=== PATIENT | male | born 1955 | race African-American/Black ===

== ENCOUNTER 2016-06-01 17:01 | Emergency (ER) | payer MEDICAID, OTHER ==
[~2016-06-01] VITALS: Ht 185.4 cm; Wt 105.8 kg
[~2016-06-01 17:01] MED LIST: ASPI-COR81 M1 PO; ASPIRIN 81 MG; ASPIRIN ADULT L81 M1 PO; CALAN SR240 M1 PO; CALCIUM CARBONATE 1500 MG; CIPRO500 MG PO; COMPAZINE; COMPAZINE10 M1 PO; COMPAZINE10 MG PO; COZAAR 50 MG; COZAAR50 MG PO; FLUNISOLIDE; GLUCOPHAGE850 MG PO; HCTZ PO; HYDROCHLOROT 25 MG; IMITREX 50 MG; IMITREX50 MG PO; INSULIN ISOPHANE SC; INSULIN NPH; INSULIN REGULAR; KLONOPIN0.5 M1 PO; LANTUS INS100 UNITS/ SUBQ; LOPRESSOR 50 MG; LOPRESSOR50 M1 PO; MAXALT 10 MG; MAXALT10 MG PO; MAXALT5 MG PO; MECLIZINE 25 MG; MECLIZINE25 M1 PO; METFORMIN 850 MG; NAPROXEN 500 MG; NAPROXEN500 M1 PO; NASAREL0.025 MG/1 NS; NEURONTIN 600MG; NEURONTIN600 MG PO; NORTRIPTYLINE 50 MG; NORTRIPTYLINE PO; SEROQUEL 50 MG; SEROQUEL50 MG PO; SILDENAFIL 100 MG; SUMATRIPTAN SUC50 MG PO; TOPAMAX100 MG PO; TOPAMAX50 MG PO; TOPIRAMATE 100 MG; TUMS EX PO; VIAGRA100 MG PO; VICODIN 5/500 M1 TAB PO; ZETIA 10 MG; ZETIA10 MG PO; ZOCOR 80 MG; ZOCOR80 MG PO; [UNRECOGNIZED DRUG - OTHER] SC
[2016-06-01 17:14] VITALS: BP 119/66
--- NOTE | 2016-06-01 20:44 | NUR ---
TO ER BED 8
--- NOTE | 2016-06-01 20:55 | NUR ---
PT IS 60/M BIB SELF TO ED C/O BL LEG SWELLING X JANUARY W/ SOB X 6 DAYS; PT STATES SAW HEAD CD REACTOR OPERATOR THIS AFTERNOON AND REFERRED TO ER. DENIES N/V/D; SKIN IS WARM/DRY WITH BLE SWELLING NOTED; AAOX4 WITH EVEN AND STEADY GAIT; LUNGS CLEAR BL; HR EVEN AND REGULAR; PT DENIES ANY FEVER, CP, SOB, OR COUGH AT THIS TIME; PATIENT STATES PAIN OF 7/10 AT THIS TIME WHEN STANDING BUT LESSER PAIN WHEN LAYING; VSS; PATIENT POSITIONED FOR COMFORT; HOB ELEVATED; BEDRAILS UP X2; BED DOWN. ER MD MADE AWARE OF PT STATUS.
[2016-06-01] MEDS ORDERED: MORPHINE SULFATE 4 MG/ML SYR IVP ONE (21:00)
[2016-06-01] MEDS ORDERED: ACETAMINOPHEN/CODEINE 300/30MG 1 TAB PO ONE (21:50)
[2016-06-01 22:29] VITALS: BP 134/77
--- NOTE | 2016-06-01 22:29 | NUR ---
Patient discharged with v/s stable. Written and verbal after care instructions given and explained. Patient alert, oriented and verbalized understanding of instructions. Ambulatory with steady gait. All questions addressed prior to discharge. ID band removed. Patient advised to follow up with PMD. Rx of TYLENOL WITH CODEINE given. Patient educated on indication of medication including possible reaction and side effects. Opportunity to ask questions provided and answered.
== END 2016-06-01 22:30 | disposition home or self-care (01) ==
LOC: MED 17:01
DX: N18.9 Chronic kidney disease, unspecified (principal); E11.22 Type 2 diabetes mellitus with diabetic chronic kidney disease; I12.9 Hypertensive chronic kidney disease with stage 1 through stage 4 chronic kidney disease, or unspecified chronic kidney disease; R06.02 Shortness of breath; Z79.82 Long term (current) use of aspirin; Z79.4 Long term (current) use of insulin
CPT/HCPCS: 36415; 71010; 80053; 82550; 82553; 83690; 83880; 84484; 85025; 93005; 93970; 99285; J2270; Q0092

== ENCOUNTER 2017-11-27 05:39 | Emergency (ER) | payer OTHER ==
[~2017-11-27] VITALS: Ht 188 cm; Wt 99.8 kg
[~2017-11-27 05:39] MED LIST changes: -ASPI-COR81 M1 PO; +ASPI81CT95 PO; -ASPIRIN 81 MG; -ASPIRIN ADULT L81 M1 PO; -CALAN SR240 M1 PO; -CALCIUM CARBONATE 1500 MG; +CIPR500T4 PO; -CIPRO500 MG PO; +CLON0.5T1 PO; -COMPAZINE; -COMPAZINE10 M1 PO; -COMPAZINE10 MG PO; +COZ50 PO; -COZAAR 50 MG; -COZAAR50 MG PO; -FLUNISOLIDE; +GABA600T1 PO; -GLUCOPHAGE850 MG PO; -HCTZ PO; -HYDROCHLOROT 25 MG; -IMITREX 50 MG; -IMITREX50 MG PO; -INSULIN ISOPHANE SC; -INSULIN NPH; -INSULIN REGULAR; -KLONOPIN0.5 M1 PO; -LANTUS INS100 UNITS/ SUBQ; +LANTUS SUBQ; -LOPRESSOR 50 MG; -LOPRESSOR50 M1 PO; -MAXALT 10 MG; -MAXALT10 MG PO; -MAXALT5 MG PO; +MECL-370 PO; -MECLIZINE 25 MG; -MECLIZINE25 M1 PO; -METFORMIN 850 MG; -NAPROXEN 500 MG; -NAPROXEN500 M1 PO; -NASAREL0.025 MG/1 NS; -NEURONTIN 600MG; -NEURONTIN600 MG PO; +NORT50CA PO; -NORTRIPTYLINE 50 MG; -NORTRIPTYLINE PO; +ORE25 PO; +PROC10TA41 PO; +QUET50TA PO; -SEROQUEL 50 MG; -SEROQUEL50 MG PO; -SILDENAFIL 100 MG; +SIMV80TA1 PO; +SUMA50TA17 PO; -SUMATRIPTAN SUC50 MG PO; +TOP100 PO; -TOPAMAX100 MG PO; -TOPAMAX50 MG PO; -TOPIRAMATE 100 MG; -TUMS EX PO; -VIAGRA100 MG PO; -VICODIN 5/500 M1 TAB PO; -ZETIA 10 MG; -ZETIA10 MG PO; -ZOCOR 80 MG; -ZOCOR80 MG PO; -[UNRECOGNIZED DRUG - OTHER] SC
--- NOTE | 2017-11-27 05:47 | NUR ---
Patient transferred to bed 4 via wheelchair by tech. RN evaluating patient at bedside.
[2017-11-27 05:50] VITALS: BP 130/83
--- NOTE | 2017-11-27 06:00 | NUR ---
PT IS A 62 Y/O MALE WHO PRESENTS TO THE ED C/O GENERALIZED WEAKNESS. PT STATES THAT HE IS GETTING WORSE WITH PROSTATE CA. PT DENIES PAIN AT THIS TIME. REPORTS DECREASED APPETITE AND COMPLICATIONS WITH PROSTATE CA. PT DENIES CP, SOB, REPORTS N/V DENIES DIARRHEA. PT AWAKE AND ALERT, RR EVEN/UNLABORED. PT REPOSITIONED FOR COMFORT, BED IN LOWEST POSITION. ER MD DR. ALEXIS NOTIFIED. WILL CONTINUE TO MONITOR. HX, PROSTATE CA, DM, MIGRAINE
[2017-11-27] MEDS ORDERED: NACL 0.9% 1,000 ML IV ONE (06:35)
--- NOTE | 2017-11-27 06:51 | NUR ---
PT REFUSED EKG AT THIS TIME. PT IS REQUESTING MEDICATION. ER MD AND RN MADE AWARE.
--- NOTE | 2017-11-27 07:00 | NUR ---
certified emergency vehicle technician at bedside.
--- NOTE | 2017-11-27 07:10 | NUR ---
Pt report given to BEATA SCRUGGS. Transfer of care at this time.
--- NOTE | 2017-11-27 07:15 | NUR ---
PT IS RESTING IN BED, AGITATED, VSS, C/O GENERALIZED PAIN 10/10, REQUESTED FOR NORCO AND FOOD. DENIES CHEST PAIN, NO S/S OF DISTRESS, GENERALIZED WEAKNESS NOTED.
[2017-11-27 07:17] LABS: BASOPHILS # (AUTO) 0.1 K/uL (0.00-0.22); BASOPHILS % (AUTO) 0.7 % (0.0-2.0); EOSINOPHILS # (AUTO) 0.4 K/uL (0-0.4); HEMATOCRIT 33.1 % (36-52); HEMOGLOBIN 10.9 g/dL (12.0-18.0); LYMPHOCYTES % (AUTO) 22.1 % (20.5-51.1); MEAN CORPUSCULAR HEMOGLOBIN 30 pg (27-31); MEAN CORPUSCULAR HGB CONC 33 g/dL (33-37); MEAN CORPUSCULAR VOLUME 91.9 fL (80-94); MONOCYTES # (AUTO) 0.7 K/uL (0.8-1.0); MONOCYTES % (AUTO) 7.3 % (1.7-9.3); NEUTROPHILS # (AUTO) 5.9 K/uL (1.8-7.7); NEUTROPHILS % (AUTO) 65.9 % (42.2-75.2); PLATELET COUNT (AUTO) 291 K/uL (140-450); WHITE BLOOD COUNT (AUTO) 8.9 K/uL (4.8-10.8)
[2017-11-27 07:31] LABS: ANION GAP 13.2 (8-16); CARBON DIOXIDE 23.7 mmol/L (21-32); CREATININE 1.8 mg/dL (0.7-1.3); POTASSIUM 3.9 mmol/L (3.5-5.1)
[2017-11-27 07:32] LABS: PROTHROMBIN TIME 9.9 secs (10.8-13.4)
[2017-11-27 07:38] LABS: ALBUMIN 3.9 g/dL (3.4-5.0); TOTAL BILIRUBIN 0.2 mg/dL (0.0-1.0)
--- NOTE | 2017-11-27 07:53 | NUR ---
TALKED TO KEMAR PICCLINE LINE NURSE AWARE OF ORDER, SHEET METAL CONTRACTOR BREN- CHARGE NURSE MARIAM GAY
[2017-11-27] MEDS ORDERED: CALER120 PO (08:21)
[2017-11-27] MEDS ORDERED: METF850T4 PO (08:21)
[2017-11-27] MEDS ORDERED: PAR2.5 PO (08:21)
[2017-11-27] MEDS ORDERED: HYDR1TAB PO (08:21)
[2017-11-27 08:27] LABS: APPEARANCE,URINE CLEAR (CLEAR); BILIRUBIN,URINE NEGATIVE (NEGATIVE); BLOOD, URINE NEGATIVE (NEGATIVE); COLOR,URINE YELLOW (YELLOW); LEUKOCYTE ESTERASE ,URINE NEGATIVE (NEGATIVE); NITRITE, URINE NEGATIVE (NEGATIVE); UGLUCOSE NEGATIVE (NEGATIVE)
--- NOTE | 2017-11-27 08:52 | NUR ---
Patient discharged with v/s stable. Written and verbal after care instructions given and explained. Patient alert, oriented and verbalized understanding of instructions. Wheel Chair Assisted. All questions addressed prior to discharge. ID band removed. Patient advised to follow up with PMD. Rx of ANTIVERT given. Patient educated on indication of medication including possible reaction and side effects. Opportunity to ask questions provided and answered.
[2017-11-27 09:52] VITALS: BP 129/70
== END 2017-11-27 08:52 | disposition home or self-care (01) ==
LOC: MED 05:39
DX: C61 Malignant neoplasm of prostate (principal); R06.00 Dyspnea, unspecified; G43.909 Migraine, unspecified, not intractable, without status migrainosus; E11.9 Type 2 diabetes mellitus without complications; I10 Essential (primary) hypertension; Z79.899 Other long term (current) drug therapy
CPT/HCPCS: 36415; 71045; 80053; 81003; 82948; 83605; 83880; 84484; 85025; 85610; 85730; 87040; 87086; 93005; 96360; 99285; J7030; Q0092; C1751

== ENCOUNTER 2018-03-06 15:26 | Emergency (ER) | payer OTHER ==
[~2018-03-06] VITALS: Ht 175.3 cm; Wt 90.7 kg
[~2018-03-06 15:26] MED LIST changes: +CALER120 PO; -CIPR500T4 PO; +HYDR1TAB PO; +METF-350 PO; +PAR2.5 PO; -SIMV80TA1 PO
[2018-03-06 15:32] VITALS: BP 122/75
--- NOTE | 2018-03-06 15:43 | NUR ---
62 YO M BIB SELF W/ C/O URINARY RETENTION X 1 DAY BECAUSE HE HAS RUN OUT OF FLOWMAX. STATES ONCOLOGIST DOUBLED HIS FLOMAX DOSE AND PMD FORGOT TO GIVE HIM THE REFILL. PT STATES HE HAS BEEN UNABLE TO URINATE SINCE LAST NIGHT. BLADDER DISTENTION. BEEN W/O FLOMAX SINCE WEDNESDAY. DENIES N/V/D/FEVER. HX PROSTATE CANCER RX FLOMAX
[2018-03-06] MEDS ORDERED: LIDOCAINE JELLY 2% 30 ML TUBE TP ONE (16:30)
[2018-03-06] MEDS ORDERED: TAMSULOSIN 0.4 MG CAP ONE (17:26)
--- NOTE | 2018-03-06 17:30 | NUR ---
URINE 300CC, YELLOW.
[2018-03-06] MEDS ORDERED: ACETAMINOPHEN 325 MG TAB PO ONE (17:55)
[2018-03-06] MEDS ORDERED: IBUPROFEN 600 MG TAB PO ONE (17:55)
[2018-03-06] MEDS ORDERED: ACETAMINOPHEN 325 MG TAB ONE (18:05)
[2018-03-06] MEDS ORDERED: IBUPROFEN 600 MG TAB ONE (18:06)
--- NOTE | 2018-03-06 19:10 | NUR ---
URINE LEG BAG PLACED TO LEFT LEG.
--- NOTE | 2018-03-06 19:18 | NUR ---
REPORT GIVEN TO DAR SCRUGGS.
[2018-03-06 19:20] VITALS: BP 134/66
--- NOTE | 2018-03-06 19:20 | NUR ---
Patient discharged with v/s stable. Written and verbal after care instructions given and explained. Patient alert, oriented and verbalized understanding of instructions. Ambulatory with steady gait. All questions addressed prior to discharge. ID band removed. Patient advised to follow up with PMD. Rx of FLOMAX given. Patient educated on indication of medication including possible reaction and side effects. Opportunity to ask questions provided and answered.
[2018-03-07] MEDS ORDERED: TAMSULOSIN 0.4 MG CAP PO SCH (08:30)
== END 2018-03-06 19:20 | disposition home or self-care (01) ==
LOC: MED 15:26
DX: R33.9 Retention of urine, unspecified (principal); E11.9 Type 2 diabetes mellitus without complications; I10 Essential (primary) hypertension; Z85.46 Personal history of malignant neoplasm of prostate; Z79.899 Other long term (current) drug therapy; Z79.4 Long term (current) use of insulin; Z79.82 Long term (current) use of aspirin
CPT/HCPCS: 51702; 99284

== ENCOUNTER 2018-03-07 06:25 | Emergency (ER) | payer OTHER ==
[~2018-03-07] VITALS: Ht 188 cm; Wt 98.9 kg
[2018-03-07 06:31] VITALS: BP 123/82
[2018-03-07] MEDS ORDERED: NACL 0.9% 1,000 ML IV SCH (06:45)
[2018-03-07 07:18] LABS: BASOPHILS % (AUTO) 0.8 % (0.0-2.0); EOSINOPHILS # (AUTO) 0.2 K/uL (0-0.4); EOSINOPHILS % (AUTO) 4.7 % (0.0-4.0); HEMATOCRIT 33.2 % (36-52); HEMOGLOBIN 10.9 g/dL (12.0-18.0); MEAN CORPUSCULAR HEMOGLOBIN 30 pg (27-31); MEAN CORPUSCULAR HGB CONC 33 g/dL (33-37); MEAN CORPUSCULAR VOLUME 92.2 fL (80-94); MONOCYTES # (AUTO) 0.4 K/uL (0.8-1.0); MONOCYTES % (AUTO) 7.3 % (1.7-9.3); NEUTROPHILS # (AUTO) 3.4 K/uL (1.8-7.7); NEUTROPHILS % (AUTO) 67.2 % (42.2-75.2); PLATELET COUNT (AUTO) 217 K/uL (140-450); RED CELL DISTRIBUTION WIDTH 14.1 % (11.6-13.7)
[2018-03-07 07:43] LABS: ANION GAP 14.3 (8-16); CARBON DIOXIDE 24.3 mmol/L (21-32); CREATININE 1.5 mg/dL (0.7-1.3); POTASSIUM 3.6 mmol/L (3.5-5.1)
[2018-03-07 07:48] LABS: ALBUMIN 3.9 g/dL (3.4-5.0); TOTAL BILIRUBIN 0.2 mg/dL (0.0-1.0)
[2018-03-07 08:27] LABS: BILIRUBIN,URINE NEGATIVE (NEGATIVE); BLOOD, URINE 3+ (NEGATIVE); COLOR,URINE YELLOW (YELLOW); LEUKOCYTE ESTERASE ,URINE TRACE (NEGATIVE); NITRITE, URINE NEGATIVE (NEGATIVE); PH,URINE 7.5 (5.0-9.0); UGLUCOSE NEGATIVE (NEGATIVE)
[2018-03-07 08:28] LABS: APPEARANCE,URINE HAZY (CLEAR); RBC,URINE >100 /HPF (0-5)
[2018-03-07 08:29] LABS: WBC,URINE 6-15 (FEW) /HPF (0-5)
[2018-03-07 09:45] VITALS: BP 132/63
== END 2018-03-07 09:45 | disposition home or self-care (01) ==
LOC: MED 06:25
DX: C61 Malignant neoplasm of prostate (principal); N39.0 Urinary tract infection, site not specified; E11.9 Type 2 diabetes mellitus without complications; I10 Essential (primary) hypertension; Z85.46 Personal history of malignant neoplasm of prostate; Z79.82 Long term (current) use of aspirin; Z79.4 Long term (current) use of insulin; Z79.899 Other long term (current) drug therapy
CPT/HCPCS: 36415; 80053; 81001; 83605; 85025; 87040; 87086; 99283; J7030; 96372

== ENCOUNTER 2018-05-29 16:33 | Inpatient (IN) | payer OTHER ==
[~2018-05-29] VITALS: Ht 185.4 cm; Wt 95.3 kg
--- NOTE | 2018-05-29 16:34 | NUR ---
WHEEL ASSIST PROVIDED FOR PT IN ER PAUL---PT STATED HE NEEDED A MINUTE LEFT WHEEL CHAIR NEXT TO PT---INFORMED PT SOON HE WAS READY HE WOULD COME STRAIGHT BACK
[2018-05-29 16:40] VITALS: BP 101/46
--- NOTE | 2018-05-29 17:00 | NUR ---
C/O DIZZYNESS X2 DAYS. PT REPORTS FALLING WEDNESDAY, DENIES HITTING HEAD, HURTING ANY BODY PART. STATES I HAVE HAD DIZZYNESS ALL DAY LONG AND I HAVE FAINTED ALL DAY LONG" . LEFT LEG SWELLING X 1 YEAR. MEDHX:"NEUROLOGICAL PROBLEMS", DM, HTN, VERTIGO. PATIENT STATES PAIN OF 0/10 AT THIS TIME. PATIENT POSITIONED FOR COMFORT; LEFT LEG ELEVATED; BEDRAILS UP X2; BED DOWN. ER MD MADE AWARE OF PT STATUS.
[2018-05-29] MEDS ORDERED: MEGE40TA4 PO (17:06)
[2018-05-29] MEDS ORDERED: TAMS0.4C96 PO (17:06)
[2018-05-29] MEDS ORDERED: ATOR20TA PO (17:07)
--- NOTE | 2018-05-29 18:01 | NUR ---
X RAY AT BEDSIDE
--- NOTE | 2018-05-29 18:12 | NUR ---
LAB AT BEDSIDE
[2018-05-29 18:34] LABS: BASOPHILS % (AUTO) 0.5 % (0.0-2.0); MONOCYTES # (AUTO) 0.5 K/uL (0.8-1.0); RED CELL DISTRIBUTION WIDTH 14.9 % (11.6-13.7)
[2018-05-29 18:38] LABS: EOSINOPHILS % (AUTO) 0.4 % (0.0-4.0); HEMATOCRIT 30.6 % (36-52); HEMOGLOBIN 10.2 g/dL (12.0-18.0); LYMPHOCYTES # (AUTO) 0.8 K/uL (2.0-11.5); LYMPHOCYTES % (AUTO) 10.4 % (20.5-51.1); MEAN CORPUSCULAR HEMOGLOBIN 31 pg (27-31); MEAN CORPUSCULAR HGB CONC 33 g/dL (33-37); MEAN CORPUSCULAR VOLUME 91.9 fL (80-94); MONOCYTES % (AUTO) 5.9 % (1.7-9.3); NEUTROPHILS # (AUTO) 6.6 K/uL (1.8-7.7); NEUTROPHILS % (AUTO) 82.8 % (42.2-75.2); PLATELET COUNT (AUTO) 221 K/uL (140-450); RED BLOOD CELL COUNT(AUTO) 3.33 MIL/uL (4.20-6.10)
--- NOTE | 2018-05-29 18:58 | NUR ---
Patient being evaluated by DR ALEXIS at bedside.
[2018-05-29 19:04] LABS: ANION GAP 17.9 (8-16); CARBON DIOXIDE 22.6 mmol/L (21-32); CREATININE 3.2 mg/dL (0.7-1.3); POTASSIUM 4.5 mmol/L (3.5-5.1)
[2018-05-29 19:09] LABS: APPEARANCE,URINE CLEAR (CLEAR); BILIRUBIN,URINE NEGATIVE (NEGATIVE); BLOOD, URINE NEGATIVE (NEGATIVE); COLOR,URINE YELLOW (YELLOW); LEUKOCYTE ESTERASE ,URINE NEGATIVE (NEGATIVE); NITRITE, URINE NEGATIVE (NEGATIVE); UGLUCOSE NEGATIVE (NEGATIVE)
--- NOTE | 2018-05-29 19:16 | NUR ---
Pt report given to SUZIE SCRUGGS. Transfer of care at this time.
[2018-05-29] MEDS ORDERED: ASPIRIN 81 MG TAB.CHEW PO ONE (19:30)
--- NOTE | 2018-05-29 19:30 | NUR ---
RECEIVED REPORT FROM AM NURSE. PT LAYING IN BED, REPORTS INTERMITTENT DIZZINESS, REPORTS BEING UNABLE TO AMBULATE DUE TO DIZZINESS. DENIES CP, SOB, N/V. TUNA SANDWICH AND CHICKEN SANDWICH PROVIDED. VSS, ALL NEEDS MET.
[2018-05-29] MEDS ORDERED: NACL 0.9% 1,000 ML IV ONE (19:55)
[2018-05-29 19:56] LABS: PROTHROMBIN TIME 10.6 secs (10.8-13.4)
[2018-05-29] MEDS ORDERED: ENOXAPARIN 100 MG/ML SYR SUBQ ONE (20:05)
--- NOTE | 2018-05-29 21:30 | NUR ---
PT TAKEN TO CT
--- NOTE | 2018-05-29 21:39 | NUR ---
PT RETURN FROM CT
--- NOTE | 2018-05-29 21:40 | NUR ---
PT LAYING IN BED, RR EVEN AND UNLABORED. VSS. DENIES YOO, CP, N/V. REPORTS INTERMITTENT DIZZINESS, ER MD MADE AWARE.
--- NOTE | 2018-05-29 22:17 | NUR ---
DR CURRAN CALLED ON THE UNIT THAT HE IS GETTING AN ADMIT WILL GIVE ORDERS. RECEIVED ODERS AND STATED THAT THE LABS ARE FOR THE AM, MENTIONED IT TO HIM THAT WE USUALLY DO TROPONIN Q8H BUT HE SAID NO THIS ARE AM LABS.
--- NOTE | 2018-05-29 22:32 | NUR ---
Michelle uriostegui in ED - 05/29/18 at 2250 by [email or web address] RN AND EMT TRANSFERING PT TO THE FLOOR, V[facility].
--- NOTE | 2018-05-29 22:40 | NUR ---
Patient will be admitted to care of DR. MEREDITH. Admited to TELE. Will go to [id number]. Belongings list completed. Report to KAEL NEAL.
--- NOTE | 2018-05-29 22:50 | NUR ---
PT ARRIVED AT UNIT VIA GURNEY, PT ABLE TO TRANSFER SELF TO BED, TOLERATED WELL, RECEIVED BEDSIDE REPORT FROM ER NURSE SUZIE RN, PT STABLE, NO DISTRESS NOTED, IV TO L AC 20G PATENT, INTACT, DATED AND INITIALED, PT ON ROOM AIR, NO SOB NOTED, ORIENT PT TO ROOM ,BED AND CALL LIGHT, V/S TAKEN WNL, MRSA SWAB TAKEN, INITIAL ASSESSMENT DONE, ALL SAFETY PRECAUTION MET, CALL LIGHT WITHIN REACH, WILL CONTINUE TO MONITOR.
[2018-05-29 23:00] VITALS: BP 109/71
[2018-05-29] MEDS ORDERED: QUEtiapine FUMARATE 25 MG TAB PO PRN (23:20)
[2018-05-29] MEDS ORDERED: DEXTROSE 50% 50 ML SYR IVP PRN (23:20)
[2018-05-29] MEDS ORDERED: MECLIZINE HCL PO SCH (23:20)
[2018-05-29] MEDS ORDERED: ACETAMINOPHEN 325 MG TAB PO PRN (23:20)
[2018-05-29] MEDS ORDERED: PROCHLORPERAZINE MALEATE PO SCH (23:20)
[2018-05-29] MEDS ORDERED: SUMAtriptan 50 MG TAB PO PRN (23:20)
[2018-05-29] MEDS ORDERED: GABAPENTIN PO SCH (23:20)
[2018-05-29] MEDS ORDERED: NORTRIPTYLINE 25 MG CAP PO SCH (23:45)
--- NOTE | 2018-05-29 23:48 | NUR ---
TALKED TO DR. CURRAN REGARDING PT REQUESTING MEDICATION NORTRIPTYLINE (HOME MEDICATION) FOR TONIGHT, STATED OK TO ORDER ONCE FOR NOW. WILL PUT IN ORDER AND CONTINUE WITH ORDERS.
[2018-05-30] MEDS ORDERED: MECLIZINE 25 MG TAB PO PRN ×2 (00:30→13:45)
--- NOTE | 2018-05-30 01:08 | NUR ---
PT STATED FEELING REALLY DIZZY, MEDICATION PER DR ORDER GIVEN, PT TOLERATED WELL, NO DISTRESS NOTED, CALL LIGHT WITHIN REACH, WILL CONTINUE TO MONITOR.
--- NOTE | 2018-05-30 03:49 | NUR ---
VITAL SIGN TAKEN. WITHIN PT'S BASELINE. NO SOB OR ANY DISCOMFORT NOTED. CALL LIGHT WITHIN REACH AND ENCOURAGE TO USE. WILL CONTINUE TO MONITOR.
[2018-05-30 04:00] VITALS: BP 110/59
[2018-05-30] MEDS: BLOOD GLUCOSE MONITORING 1 DEV DEV FS SCH ×4 (05:39→21:55)
--- NOTE | 2018-05-30 05:41 | NUR ---
CHECKED ON PT, PT SLEEPING, NO DISTRESS NOTED, CALL LIGHT WITHIN REACH, WILL CONTINUE TO MONITOR.
[2018-05-30 06:40] LABS: BASOPHILS % (AUTO) 0.5 % (0.0-2.0); EOSINOPHILS # (AUTO) 0.2 K/uL (0-0.4); HEMATOCRIT 27.9 % (36-52); HEMOGLOBIN 9.3 g/dL (12.0-18.0); LYMPHOCYTES # (AUTO) 1.2 K/uL (2.0-11.5); LYMPHOCYTES % (AUTO) 16.2 % (20.5-51.1); MEAN CORPUSCULAR HEMOGLOBIN 31 pg (27-31); MEAN CORPUSCULAR HGB CONC 34 g/dL (33-37); MEAN CORPUSCULAR VOLUME 91.3 fL (80-94); MONOCYTES # (AUTO) 0.4 K/uL (0.8-1.0); MONOCYTES % (AUTO) 5.5 % (1.7-9.3); NEUTROPHILS # (AUTO) 5.5 K/uL (1.8-7.7); NEUTROPHILS % (AUTO) 74.8 % (42.2-75.2); PLATELET COUNT (AUTO) 203 K/uL (140-450); RED BLOOD CELL COUNT(AUTO) 3.05 MIL/uL (4.20-6.10); RED CELL DISTRIBUTION WIDTH 14.6 % (11.6-13.7); WHITE BLOOD COUNT (AUTO) 7.3 K/uL (4.8-10.8)
[2018-05-30 06:47] LABS: ANION GAP 15.6 (8-16); CARBON DIOXIDE 21.1 mmol/L (21-32); CREATININE 2.2 mg/dL (0.7-1.3); POTASSIUM 3.7 mmol/L (3.5-5.1)
[2018-05-30] MEDS: INSULIN LISPRO SLIDING SCALE 100 UNITS/ML VIAL SUBQ PRN ×4 (06:55→21:54)
--- NOTE | 2018-05-30 07:10 | NUR ---
RECEIVED REPORT FROM NIGHT NURSE ÁNGEL. PT AWAKE A/O ABLE TO COMMUNICATE NEEDS, PER PT DIZZINESS CONTINUES, UNCHANGED. IV SITE NOTED TO BE INFILTRATED WITH SLIGHT SWELLING AT SITE, PT DENIES PAIN, DIRECTOR OF MARKETING AND PROMOTIONS TO REMOVE AND RESTART. CALL LIGHT AND PERSONAL ITEMS WITHIN REACH, NO S/S OF ACUTE DISTRESS NOTED AT THIS TIME, WILL CONTINUE TO MONITOR.
[2018-05-30] MEDS ORDERED: ACETAMINOPHEN EXTRA STRENGTH 500 MG TAB PO PRN ×2 (07:14→13:35)
[2018-05-30] MEDS ORDERED: PROCHLORPERAZINE 5 MG TAB PO PRN (07:25)
--- NOTE | 2018-05-30 07:28 | NUR ---
ENDORSED PATIENT AT BEDSIDE TO DAY SHIFT NURSE FOR CONTINUITY OF CARE. PATIENT IS IN STABLE CONDITION. SAFETY MEASURES ARE IN PLACE.
--- NOTE | 2018-05-30 07:58 | NUR ---
RECEIVED LAB REPORT TROPONIN 0.179 FROM [facility] IN LAB, TRENDING DOWN.
[2018-05-30 08:00] VITALS: BP 104/67
--- NOTE | 2018-05-30 08:22 | NUR ---
PATIENT HAS BEEN SCREENED AND CATEGORIZED HIGH NUTRITION RISK. PATIENT WILL BE SEEN WITHIN 1-2 DAYS OF ADMISSION. 05/30/18-05/31/[address]
[2018-05-30] MEDS ORDERED: TOPIRAMATE 100 MG TAB PO SCH (09:00)
[2018-05-30] MEDS: VERAPAMIL 120 MG CAPER PO SCH ×2 (09:00→09:26)
[2018-05-30] MEDS ORDERED: NORTRIPTYLINE HYDROCHLORIDE PO SCH ×2 (09:00→21:00)
[2018-05-30] MEDS ORDERED: metFORMIN 850 MG TAB PO SCH (09:00)
[2018-05-30] MEDS ORDERED: NON-FORMULARY ITEM (Aspirin 1 TAB) PO SCH (09:00)
[2018-05-30] MEDS ORDERED: METOPROLOL PO SCH (09:00)
[2018-05-30] MEDS ORDERED: HYDROCHLOROTHIAZIDE PO SCH (09:00)
[2018-05-30] MEDS ORDERED: MEGESTROL ACETATE 80 MG PO SCH (09:00)
[2018-05-30] MEDS: ASPIRIN 81 MG TAB.CHEW PO SCH (09:16)
[2018-05-30] MEDS: LOSARTAN 50 MG TAB PO SCH (09:18)
[2018-05-30] MEDS: clonazePAM 0.5 MG TAB PO SCH ×2 (09:19→21:51)
[2018-05-30] MEDS: TAMSULOSIN 0.4 MG CAP PO SCH (09:19)
[2018-05-30] MEDS: ATORVASTATIN 20 MG TAB PO SCH (09:20)
[2018-05-30] MEDS: MEGESTROL 40 MG TAB PO SCH (09:20)
[2018-05-30] MEDS: NORTRIPTYLINE 25 MG CAP PO SCH (09:21)
[2018-05-30] MEDS: HYDROCHLOROTHIAZIDE 25 MG TAB PO SCH (09:21)
[2018-05-30] MEDS: BROMOCRIPTINE 2.5 MG TAB PO SCH (09:22)
--- NOTE | 2018-05-30 09:30 | NUR ---
PT AWAKE A/O ABLE TO COMMUNICATE NEEDS, NO S/S OF ACUTE DISTRESS NOTED AT THIS TIME, CALL LIGHT AND PERSONAL ITEMS WITHIN REACH, WILL CONTINUE TO MONITOR.
--- NOTE | 2018-05-30 09:50 | NUR ---
NOTIFIED PT VERAPAMIL PT AVAILABLE, REQUESTED PT HAVE FAMINLY OR FRIEND BRING MEDICATION FROM HOME.
--- NOTE | 2018-05-30 10:30 | NUR ---
NOTIFIED DR MEREDITH OF PHARMACY INQUIRY REGARDING ADDING METOPROLOL TO CURRENT INHOUSE MEDICATION TO SUBSTITUTE PT COMBO HOME MED, PHYSICIAN DECLINED.
[2018-05-30] MEDS: NACL 0.9% 1,000 ML IV SCH (11:20)
--- NOTE | 2018-05-30 11:30 | NUR ---
PT SLEEPING, NO S/S OF ACUTE DISTRESS NOTED AT THIS TIME, CALL LIGHT AND PERSONAL ITEMS WITHIN REACH, WILL CONTINUE TO MONITOR.
[2018-05-30 12:00] VITALS: BP 95/54
--- NOTE | 2018-05-30 12:30 | NUR ---
DR CURRAN AT BEDSIDE ROUNDING ON PT.
--- NOTE | 2018-05-30 15:20 | NUR ---
05/30/18 RD INITIAL ASSESSMENT COMPLETED PLEASE REFER TO NUTRITION ASSESSMENT UNDER CARE ACTIVITY FOR ESTIMATED NUTRITIONAL NEEDS. 1. CONTINUE RENAL CCHO DIET TOLERATED 2. PATIENT WAS PROVIDED DIABETES EDUCATION HANDOUTS 3. RD TO FOLLOW-UP 3-5 DAYS, MODERATE RISK LORIE VILLARREAL RD
[2018-05-30 16:00] VITALS: BP 98/52
--- NOTE | 2018-05-30 16:00 | NUR ---
PT AWAKE A/O ABLE TO COMMUNICATE NEEDS, POST VOID BLADDER SCAN COMPLETED PER DR BINA Menjivar 87ML, NO S/S OF ACUTE DISTRESS NOTED AT THIS TIME, CALL LIGHT AND PERSONAL ITEMS WITHIN REACH, WILL CONTINUE TO MONITOR.
--- NOTE | 2018-05-30 19:29 | NUR ---
PT AWAKE A/O ABLE TO COMMUNICATE NEEDS, NO S/S OF ACUTE DISTRESS NOTED AT THIS TIME, CALL LIGHT AND PERSONAL ITEMS WITHIN REACH, SAFETY MEASURES IN PLACE. REPORT ENDORSED TO ONCOMING NURSE.
--- NOTE | 2018-05-30 19:40 | NUR ---
SEEN PT AWAKE, ALERT AND ORIENTED. INITIAL ASSESSMENT DONE. PT CAN'T LOOK STRAIGHT BUT ABLE TO COMMUNICATE WELL. PT STATES "I HAVE NEUROLOGICAL PROBLEMS FOR A LONG TIME." VITAL SIGNS CHECKED. PT DENIES ANY PAIN OR DISCOMFORT. PT DENIES COUGH AT THIS TIME BUT ENCOURAGED TO LET THE STAFF KNOW IF HIS COUGH BECOMES WORSE. PT VERBALIZED UNDERSTANDING. CALL LIGHT W/IN REACH. SAFETY REINFORCED.
[2018-05-30] MEDS ORDERED: GABAPENTIN 300 MG CAP PO SCH (21:00)
[2018-05-30] MEDS ORDERED: INSULIN LANTUS 100 UNITS/ML 10 ML VIAL SUBQ SCH (21:00)
[2018-05-30] MEDS: TOPIRAMATE 100 MG TAB PO SCH (21:47)
--- NOTE | 2018-05-30 21:50 | NUR ---
PT AWAKE. BLOOD SUGAR CHECKED:167. WILL COVER W/ INSULIN PER ORDER. PT ASKING FOR SEROQUEL. MEDICATIONS GIVEN W/ TEACHINGS. PT VERBALIZED UNDERSTANDING. SNACKS PROVIDED. PT STATES " YOU HAVE TO CHECK MY BLOOD SUGAR LATER BECAUSE IT WILL DROP FAST." INFORMED PT THAT HIS BLOOD SUGAR WILL BEC CHECKED LATER. CALL LIGHT W/ REACH. WILL CONTINUE TO MONITOR.
--- NOTE | 2018-05-31 00:50 | NUR ---
SEEN PT AWAKE. VITAL SIGNS CHECKED. PT WANTS HIS BLOOD SUGAR CHECK BUT DENIES ANY FEELINGS OF LOW BLOOD SUGAR. PT DENIES ANY PAIN OR DISCOMFORT. BLOOD SUGAR CHECKED:153. WILL NOT GIVE COVERAGE AT THIS TIME. URINAL EMPTIED W/ 800ML CLEAR, YELLOW URINE. PT DENIES ANY OTHER NEEDS. CALL LIGHT W/IN REACH. WILL CONTINUE TO MONITOR.
[2018-05-31 00:55] VITALS: BP 145/75
[2018-05-31 04:45] VITALS: BP 139/77
--- NOTE | 2018-05-31 04:55 | NUR ---
SEEN PT ASLEEP BUT EASILY AROUSABLE. VITAL SIGNS CHECKED. PT DENIES ANY DISCOMFORT. PT WANTS HIS BLOOD SUGAR CHECKED. BUT TOLD HIM ITS TOO EARLY. WILL CHECK IT IN AN HOUR. PT AGREEABLE AND VERBALIZED UNDERSTANDING. SAFETY ENSURED. CALL LIGHT W/IN REACH.
[2018-05-31] MEDS: NACL 0.9% 1,000 ML IV SCH ×2 (05:07→12:00)
--- NOTE | 2018-05-31 06:20 | NUR ---
AWAKEN PT. BLOOD SUGAR CHECKED:137. NO COVERAGE NEEDED. PT KEPT COMFORTABLE. CALL LIGHT W/IN REACH.
[2018-05-31] MEDS: BLOOD GLUCOSE MONITORING 1 DEV DEV FS SCH ×3 (06:34→17:20)
[2018-05-31 07:17] LABS: ANION GAP 14.2 (8-16); CARBON DIOXIDE 23.3 mmol/L (21-32); CREATININE 1.6 mg/dL (0.7-1.3); POTASSIUM 3.5 mmol/L (3.5-5.1)
--- NOTE | 2018-05-31 07:38 | NUR ---
PT REPORT GIVEN TO DAYSHIFT NURSE.
--- NOTE | 2018-05-31 07:39 | NUR ---
REPORT RECEIVED FROM GRAINING PRESS OPERATOR NURSE AT BEDSIDE FOR CONTINUITY OF CARE. PATIENT AWAKE AND ALERT, IV SITE PATENT, INTACT, AND INFUSING IVF WELL. RESPIRATIONS EVEN AND UNLABORED ON ROOM AIR. NO COMPLAINTS OF PAIN AT THIS TIME. VS REUBEN. UPDATED BOARD. UPDATED PATIENT WITH PLAN OF CARE. HE VERBALIZED UNDERSTANDING. SAFETY PRECAUTIONS IN PLACE, CALL LIGHT WITHIN REACH, WILL CONTINUE TO MONITOR PATIENT.
[2018-05-31 08:00] VITALS: BP 111/65
[2018-05-31] MEDS: MEGESTROL 40 MG TAB PO SCH (09:00)
[2018-05-31] MEDS ORDERED: ENOXAPARIN 30 MG/0.3 ML SYR SUBQ SCH (09:00)
[2018-05-31] MEDS: ASPIRIN 81 MG TAB.CHEW PO SCH (09:29)
[2018-05-31] MEDS: TOPIRAMATE 100 MG TAB PO SCH (09:29)
[2018-05-31] MEDS: ATORVASTATIN 20 MG TAB PO SCH (09:29)
[2018-05-31] MEDS: clonazePAM 0.5 MG TAB PO SCH (09:31)
[2018-05-31] MEDS: HYDROCHLOROTHIAZIDE 25 MG TAB PO SCH (09:32)
[2018-05-31] MEDS: TAMSULOSIN 0.4 MG CAP PO SCH (09:32)
[2018-05-31] MEDS: NORTRIPTYLINE 25 MG CAP PO SCH (09:35)
[2018-05-31] MEDS: BROMOCRIPTINE 2.5 MG TAB PO SCH (09:36)
[2018-05-31] MEDS: LOSARTAN 50 MG TAB PO SCH (09:36)
[2018-05-31] MEDS: VERAPAMIL 120 MG CAPER PO SCH (09:36)
--- NOTE | 2018-05-31 10:11 | NUR ---
PATIENT C/O PAIN IN ABDOMINAL AREA. PRN PAIN MEDICATION GIVEN. PATIENT TOLERATING IT. SAFETY PRECAUTIONS IN PLACE, CALL LIGHT WITHIN REACH, WILL CONTINUE TO MONITOR PATIENT.
--- NOTE | 2018-05-31 10:30 | NUR ---
DR. MEREDITH IN TO SEE THE PATIENT. WILL WAIT FOR HIS UPDATED ORDERS.
[2018-05-31] MEDS ORDERED: QUEtiapine FUMARATE 25 MG TAB PO PRN (10:31)
[2018-05-31] MEDS ORDERED: TOP100 PO (10:32)
--- NOTE | 2018-05-31 11:17 | NUR ---
PHYSICAL THERAPY IN TO SEE THE PATIENT. WILL WAIT FOR THEIR EVALUATION.
[2018-05-31 12:00] VITALS: BP 119/73
[2018-05-31] MEDS: INSULIN LISPRO SLIDING SCALE 100 UNITS/ML VIAL SUBQ PRN (12:23)
--- NOTE | 2018-05-31 12:23 | NUR ---
BLOOD SUGAR 273, COVERAGE GIVEN. PATIENT TOLERATED IT. PATIENT NOW SITTING IN BED EATING LUNCH, NO SIGN OF DISTRESS NOTED. PATIENT MEDICATED FOR PAIN AT 1011. SAFETY PRECAUTIONS IN PLACE, CALL LIGHT WITHIN REACH, WILL CONTINUE TO MONITOR PATIENT.
--- NOTE | 2018-05-31 13:50 | NUR ---
CALLED EDU, INCOME TAX CONSULTANT, ABOUT PATIENT'S DISCHARGE PLANNING. EDU STATED THAT SHE IS CONTACTING FACILITIES TO DISCHARGE PATIENT TO. PATIENT AWARE. WILL CONTINUE TO MONITOR PATIENT.
--- NOTE | 2018-05-31 14:30 | NUR ---
EILEEN NOTE RECEIVED ORDER TO DC TO SNF. I SPOKE WITH PATIENT BEDSIDE AND HE SAID THAT HE PREFERS TO GO TO [facility] BECAUSE HE HAD BEEN THERE BEFORE AND HE HAD A GOOD EXPERIENCE. FAXED ORDER FOR SNF AND PT EVAL NOTES TO [facility]. PER ZULEMA OF [facility] THEY ARE CONTRACTED WITH [facility]. FAXED CLINICAL PACKET TO [facility]. PER MARCIA OF [facility] THEY HAVE NO MALE BEDS AVAILABLE AT THIS TIME. I INFORMED [facility] EILEEN POOLE THAT NO MALE BEDS AVAILABLE IN [facility] AND SHE SAID TO SEND INQUIRY TO [facility] SISTER FACILITY [facility]. FAXED CLINICAL PACKET TO [facility]. [facility] EILEEN POOLE ALSO SAID THAT FOR [facility] AUTH# [id number]. I INFORMED PATIENT THAT [facility] HAS NO MALE BED AVAILABLE AND THAT HIS INSURANCE CM HAS SAID TO SEND INQUIRY TO [facility] SISTER FACILITY [facility]. PER PATIENT, HE WANTS A ENT SURGEON FROM [facility] TO COME AND TALK TO HIM SO HE WILL KNOW MORE ABOUT THEIR FACILITY. THE PATIENT SAID HE HAD A BAD EXPERIENCE BEFORE IN ONE OF THE NURSING FACILITIES HE WAS IN AND HE WANTS TO MAKE SURE THAT HE KNOWS ABOUT THE FACILITY HE IS GOING TO. KEO OF [facility] CAME TO SPEAK WITH THE PATIENT BEDSIDE.
--- NOTE | 2018-05-31 15:08 | NUR ---
CM NOTE PER KEO OF [facility], HE SPOKE WITH THE PATIENT WHO STATED THAT HE WANTS TO GO TO [facility]. PER KEO, THE PATIENT CAN GO TO [address] TODAY. PER [facility] EILEEN POOLE, FOR [facility] AUTH# [id number]. PER ESTHER OF [facility] PH# [phone], THE PATIENT WILL BE PICKED UP AT 1830 TIME TODAY TO GO TO [facility]. HOLLY SCRUGGS AWARE.
[2018-05-31 16:00] VITALS: BP 111/70
--- NOTE | 2018-05-31 17:37 | NUR ---
BLOOD SUGAR 150, NO COVERAGE NEEDED. CALLED [facility] AT . GAVE REPORT TO ED SWAN, NURSING GAME ROOM ATTENDANT. PATIENT IS TO BE TRANSPORTED BY [facility] AT 1830 VIA GURNEY. SHE VERBALIZED UNDERSTANDING. WILL CONTINUE TO MONITOR PATIENT.
--- NOTE | 2018-05-31 18:03 | NUR ---
CALLED PATIENT'S FAMILY EBENEZER SANTZIO AT [phone]. NO RESPONSE. LEFT VOICEMAIL FOR HER TO CALL BACK. DISCHARGE INSTRUCTIONS GIVEN TO PATIENT. HE VERBALIZED UNDERSTANDING. WILL CONTINUE TO MONITOR PATIENT.
--- NOTE | 2018-05-31 19:22 | NUR ---
ANTIVERT PRN GIVEN TO PATIENT PER REQUESTED D/T DIZZINESS. REPORT GIVEN TO SERVICE SUPERVISOR NURSE DEMARCUS AT BEDSIDE FOR CONTINUITY OF CARE. PATIENT IN STABLE CONDITION, READY FOR TRANSFER TO [facility].
--- NOTE | 2018-05-31 19:25 | NUR ---
RECEIVED REPORT FROM RN. PT SITTING IN BED. MEDICATED FOR DIZZINESS. NO S/S OF ACUTE DISTRESS. PT DENIES PAIN. IV SITE PATENT AND INTACT. AAOX4. CALL LIGHT WITHIN REACH. SAFETY MEASURES ENSURED. WILL CONTINUE TO MONITOR.
--- NOTE | 2018-05-31 20:00 | NUR ---
[facility] HERE FOR TRANSPORT. DISCHARGE INSTRUCTIONS PROVIDED BY JIMENEZ. CHART COPY GIVEN TO [place]. NO S/S OF ACUTE DISTRESS. PT DENIES PAIN. PT STABLE FOR TRANSPORT. PT WHEELED OFF IN [facility].
== END 2018-05-31 20:10 | DRG 469 ==
LOC: MED 16:33 → MTU 22:14
PROVIDERS: ADMIT Internal Medicine Pulmonary Disease; ATTEND Internal Medicine Pulmonary Disease
DX: N17.9 Acute kidney failure, unspecified (principal); E11.22 Type 2 diabetes mellitus with diabetic chronic kidney disease; C61 Malignant neoplasm of prostate; E86.0 Dehydration; E78.5 Hyperlipidemia, unspecified; F41.9 Anxiety disorder, unspecified; N18.3 Chronic kidney disease, stage 3 (moderate); I12.9 Hypertensive chronic kidney disease with stage 1 through stage 4 chronic kidney disease, or unspecified chronic kidney disease; G43.909 Migraine, unspecified, not intractable, without status migrainosus; N40.1 Benign prostatic hyperplasia with lower urinary tract symptoms; Z79.4 Long term (current) use of insulin; R33.8 Other retention of urine; Z92.21 Personal history of antineoplastic chemotherapy; Z92.3 Personal history of irradiation
CPT/HCPCS: 36415; 70450; 71045; 76770; 80048; 81003; 82948; 83880; 84484; 85025; 85610; 87081; 96360; 96361; 97530; 99285; J1650; J1815; J7030; J8597; Q0092

== ENCOUNTER 2018-10-25 23:09 | Emergency (ER) | payer OTHER ==
[~2018-10-25] VITALS: Ht 188 cm; Wt 83.9 kg
[~2018-10-25 23:09] MED LIST changes: +ATOR20TA PO; -COZ50 PO; -HYDR1TAB PO; +LOSA50TA57 PO; +MEGE40TA4 PO; +TAMS0.4C96 PO
[2018-10-25 23:15] VITALS: BP 144/76
[2018-10-26] MEDS ORDERED: NACL 0.9% 1,000 ML IV ONE (01:40)
[2018-10-26] MEDS ORDERED: AMOXICILLIN 500 MG CAP PO ONE (01:55)
[2018-10-26 02:14] LABS: BASOPHILS % (AUTO) 0.3 % (0.0-2.0); EOSINOPHILS # (AUTO) 0.2 K/uL (0-0.4); EOSINOPHILS % (AUTO) 3.4 % (0.0-4.0); HEMATOCRIT 30.7 % (36-52); HEMOGLOBIN 10.3 g/dL (12.0-18.0); LYMPHOCYTES # (AUTO) 1.4 K/uL (2.0-11.5); LYMPHOCYTES % (AUTO) 20.2 % (20.5-51.1); MEAN CORPUSCULAR HEMOGLOBIN 30 pg (27-31); MEAN CORPUSCULAR HGB CONC 34 g/dL (33-37); MONOCYTES # (AUTO) 0.5 K/uL (0.8-1.0); MONOCYTES % (AUTO) 7.7 % (1.7-9.3); NEUTROPHILS # (AUTO) 4.7 K/uL (1.8-7.7); NEUTROPHILS % (AUTO) 68.4 % (42.2-75.2); PLATELET COUNT (AUTO) 214 K/uL (140-450); RED BLOOD CELL COUNT(AUTO) 3.41 MIL/uL (4.20-6.10); RED CELL DISTRIBUTION WIDTH 15.4 % (11.6-13.7); WHITE BLOOD COUNT (AUTO) 6.9 K/uL (4.8-10.8)
[2018-10-26 02:24] LABS: CARBON DIOXIDE 22.4 mmol/L (21-32); CREATININE 1.5 mg/dL (0.7-1.3); POTASSIUM 3.4 mmol/L (3.5-5.1)
[2018-10-26 02:32] LABS: TOTAL BILIRUBIN 0.4 mg/dL (0.0-1.0)
[2018-10-26 04:10] VITALS: BP 122/74
== END 2018-10-26 04:10 | disposition home or self-care (01) ==
LOC: MED 23:09
DX: K04.7 Periapical abscess without sinus (principal); E11.649 Type 2 diabetes mellitus with hypoglycemia without coma; I10 Essential (primary) hypertension; Z85.46 Personal history of malignant neoplasm of prostate; Z79.899 Other long term (current) drug therapy; Z79.4 Long term (current) use of insulin; Z79.82 Long term (current) use of aspirin; Z79.84 Long term (current) use of oral hypoglycemic drugs
CPT/HCPCS: 36415; 80053; 82948; 85025; 96360; 99283; J7030